=== PATIENT | male | born 1930 | race Caucasian/White ===

== ENCOUNTER → 2017-05-07 | Outpatient (CLI) | payer MEDICARE ==
[~2017-05-07] MED LIST: ALBU6.7H INH; ASCO500C PO; ASPI81 PO; B COTAB3 PO; ECASA81 PO; FEXO15TA PO; FISH1000 PO; FISHCAP4 PO; LUTE20CA PO; METO100T9 PO; METO25TA3 PO; MULT-244 PO; NEXI20CA PO; ROSU10 PO; SPECTRAVITE PO; SYMB160A INH; TAB-TAB PO; VITA500T10 PO; VITACAP7 PO; XOPEAER4 INH
[2017-05-07 14:05] LABS: HEMATOCRIT 37.2 % (39.0-51.0); HEMOGLOBIN 12.6 GM/DL (13.0-17.0); MEAN CORPUSCULAR HEMOGLOBIN 31.2 PG (27.0-34.0); MEAN CORPUSCULAR HGB CONC 33.9 % (32.0-36.0); MEAN PLATELET VOLUME 8.2 FL (7.0-11.0); PLATELET COUNT 195 TH/MM3 (150-450); RED BLOOD COUNT 4.05 MIL/MM3 (4.50-5.90); WHITE BLOOD COUNT 8.7 TH/MM3 (4.0-11.0)
[2017-05-07 14:16] LABS: PROTHROMBIN TIME - PATIENT 10.4 SEC (9.8-11.6)
[2017-05-07 14:29] LABS: BICARBONATE 27.8 MEQ/L (21.0-32.0); CALCIUM 8.8 MG/DL (8.5-10.1); CREATININE 1.33 MG/DL (0.60-1.30)
--- NOTE | 2017-05-07 21:06 | EKG ---
Date Performed: 05/07/2017 Time Performed: 10:53:52 PTAGE: 87 years EKG: Sinus rhythm with 1st degree A-V block Right bundle branch block Abnormal ECG PREVIOUS TRACING : 02/20/2009 10.13 Compared to the previous tracing RBBB is new DOCTOR: Jameel Monge Interpretating Date/Time 05/07/2017 21:06:01
== END ==
LOC: CPRE 10:25
PROVIDERS: ATTEND Internal Medicine
DX: Z01.812 Encounter for preprocedural laboratory examination (principal); Z01.810 Encounter for preprocedural cardiovascular examination; R91.8 Other nonspecific abnormal finding of lung field; I44.0 Atrioventricular block, first degree; I45.10 Unspecified right bundle-branch block
CPT/HCPCS: 36415; 80048; 85027; 85610; 85730; 93005

== ENCOUNTER 2017-05-11 10:39 | Day surgery (SDC) | payer MEDICARE ==
[~2017-05-11] VITALS: Ht 180.3 cm; Wt 88.2 kg
[~2017-05-11 10:39] MED LIST changes: -ALBU6.7H INH; -ASPI81 PO; -B COTAB3 PO; -FISH1000 PO; -METO100T9 PO; -NEXI20CA PO; -SPECTRAVITE PO; -TAB-TAB PO; -VITA500T10 PO
[2017-05-11 10:59] VITALS: BP 133/69; PULSE 58; RESP 20; TEMP 97.9; O2SAT 96
[2017-05-11] MEDS ORDERED: RESP: ALBUTEROL 2.5 MG/3 ML NEB (SCH) INH (12:00)
[2017-05-11] MEDS ORDERED: ONDANSETRON HCL 4 MG/2 ML VIAL IV ONE (12:00)
[2017-05-11] MEDS ORDERED: LIDOCAINE HCL 1% PF 5 ML SYRINGE OTHER ONE (12:00)
[2017-05-11] MEDS ORDERED: PROPOFOL 200 MG/20 ML AMP IV ONE (12:00)
[2017-05-11] MEDS ORDERED: RESP: LIDOCAINE HCL 4% TOPICAL 4 ML KIT NEB NEB SCH (12:00)
--- NOTE | 2017-05-11 13:11 | RADRPT ---
EXAM DATE/TIME: 05/11/2017 12:21 [facility] COMPARISON: No previous studies available for comparison. INDICATIONS : Pre op for navigational bronchoscopy. Lung mass. RADIATION DOSE: 5.85 CTDIvol (mGy) MEDICAL HISTORY : Carcinoma, bladder. Carcinoma, lung. SURGICAL HISTORY : Appendectomy. Lobectomy. ENCOUNTER: Initial ACUITY: 1 day PAIN SCALE: 0/10 LOCATION: chest TECHNIQUE: Volumetric scanning of the chest was performed using inspiration and expiration protocols. The study is performed using fiduciary markers for virtual bronchoscopy. Using automated exposure control and adjustment of the mA and/or kV according to patient size, radiation dose was kept as low as reasonabl y achievable to obtain optimal diagnostic quality images. DICOM format image data is available elec tronically for review and comparison. Follow-up recommendations for detected pulmonary nodules are based at a minimum on nodule size and pa tient risk factors according to Fleischner Society Guidelines. FINDINGS: LUNGS: There is no pneumothorax. There is an ill-defined large mass like structure in the right upper lobe w hich contains central calcification or possible contrast. This measures up to at least 4 cm in diamet er. There is peripheral consolidation surrounding this mass like area. There is narrowing of the righ t upper lobe bronchus there is a second smaller mass in the anterior right upper lobe measuring up to 1.5 cm. This is best seen on axial image #21. There is mild volume loss in the right hemithorax comp ared to the left. The left lung is clear. PLEURAE: There is no pleural effusion. A full referral pleural thickening in the right upper lung. MEDIASTINUM: The heart and great vessels demonstrate no acute abnormality. There are Postoperative changes in the right hilar region with multiple surgical clips and kendall. There is abnormal soft tissue density ex tending into the right suprahilar region. Coronary artery calcifications are present. This calcificat ion mitral valve. AXILLAE: Within normal limits. No lymphadenopathy. MUSCULOSKELETAL: Within normal limits for patient age. MISCELLANEOUS: The visualized upper abdominal organs demonstrate no acute abnormality. CONCLUSION: 1. Large ill-defined masslike area of opacity in the right upper lobe is consistent with tumor mass. A central calcification or possible contrast. There is more peripheral consolidation in the right upp er lobe. 2. There is a second smaller mass in the anterior right upper lobe measuring up to 1.5 cm. 3. Postoperative changes in the right hilar region with surgical clips. There is abnormal soft tissue density extending into the right suprahilar region consistent with tumor and/or adenopathy. Asaf Jesus MD on May 11, 2017 at 13:00 Board Certified Radiologist. This report was verified electronically.
[2017-05-11] MEDS ORDERED: RESP: ALBUTEROL 2.5 MG/IPRATROPIUM 0.5 MG NEB (PRN) NEB (14:15)
[2017-05-11] MEDS ORDERED: DO NOT ADM ANY ANTICOAGULANT DRUGS PRN ×2 (14:24→14:30)
[2017-05-11] MEDS ORDERED: *RESP: ALBUTEROL 2.5 MG/3 ML NEB (PRN) PERIprocedural Use ONLY NEB ONE (14:33)
[2017-05-11] MEDS ORDERED: SODIUM CHLOR 0.9% 1000 ML INJ 1,000 ML IV SCH (14:45)
--- NOTE | 2017-05-11 15:07 | RADRPT ---
EXAM DATE/TIME: 05/11/2017 14:21 [facility] COMPARISON: CT THORAX W/O CONTRAST INSP/EXPIR, NAVIGATION, May 11, 2017, 12:21. CHEST SINGLE AP, February 19, 2009, 23:25. INDICATIONS : Post Bronchoscopy MEDICAL HISTORY : Carcinoma, bladder. Carcinoma, lung. SURGICAL HISTORY : Lobectomy. Appendectomy. ENCOUNTER: Initial ACUITY: 1 day PAIN SCORE: 0/10 LOCATION: Bilateral chest FINDINGS: There is pleuroparenchymal opacity in the right lung apex and patchy infiltrate in the right lower katja ng. There is asymmetric elevation of the right diaphragm and dependent right effusion also suspected. Mild perihilar and basilar parenchymal testes present on the left side. Visualized cardiac contours are grossly stable. There is no evidence of pneumothorax or other complication of bronchoscopy CONCLUSION: No evidence of complication of bronchoscopy. Charanjit Jackson MD on May 11, 2017 at 15:02 Board Certified Radiologist. This report was verified electronically.
[2017-05-11 15:20] VITALS: BP 135/71; PULSE 89; RESP 18; TEMP 97.5; O2SAT 94
[2017-05-11 15:50] VITALS: BP 125/69; PULSE 63; RESP 20; O2SAT 94
[2017-05-11 16:25] VITALS: BP 136/66; PULSE 76; RESP 20; O2SAT 92
--- NOTE | 2017-05-11 17:36 | MP ---
cc: Camilla NAM DATE OF SURGERY: 05/11/2017 PROCEDURE: Bronchoscopy INDICATIONS: Probable lung cancer. DESCRIPTION OF PROCEDURE: After informed consent was obtained Mr. Jc underwent diagnostic bronchoscopy with general anesthesia and Veran navigational assistance. Examination of the mid to distal trachea was normal. Examination of the left main stem bronchus, left upper lobe and lingula as well as the left lower lobe was entirely unremarkable. Examination of the right main stem bronchus down to the takeoff of the residual right lung was normal but there was narrowing at the distal airway. Resection margin was noted, that appeared normal. The bronchus to the remaining right lung was markedly narrowed with mucosal irregularity. No specific endobronchial mass was noted. Using Veran navigational technology, we then were able to identify the area of interest and brushings were initially obtained. There was fairly brisk bleeding after the initial brushing, but that abated with cold saline installation. We then relocated the area of interest using navigation, took additional washings, several brushings, and then a needle aspiration as well. The patient tolerated the procedure well without other apparent complication. There was no active bleeding at the end of the procedure. He is being transferred to recovery. Chest x-ray has been ordered. Multiple specimens submitted for cytology and routine culture. MD MAHENDRA Sanders/AICHA /1:59 PM /4:48 PM
== END 2017-05-11 16:35 | disposition home or self-care (01) ==
LOC: HROP 10:39 → HRIP 10:44 → HROP 16:35
PROVIDERS: ATTEND Internal Medicine
DX: C34.11 Malignant neoplasm of upper lobe, right bronchus or lung (principal); C67.9 Malignant neoplasm of bladder, unspecified; E78.5 Hyperlipidemia, unspecified; J44.9 Chronic obstructive pulmonary disease, unspecified
CPT/HCPCS: 00520; 31623; 31627; 71045; 71250; 87015; 87070; 87077; 87102; 87116; 87205; 87206; 88112; 88173; 88305; 94640; 94664; J2405; J3010; J7030; J7613

== ENCOUNTER 2017-08-30 12:49 | Emergency (ER) | payer MEDICARE ==
[~2017-08-30] VITALS: Ht 182.9 cm; Wt 88.2 kg
[2017-08-30 12:54] VITALS: BP 124/58; PULSE 63; RESP 20; TEMP 98.1; O2SAT 96
[2017-08-30 14:06] LABS: AUTOMATED NEUTROPHIL # 5.4 TH/MM3 (1.8-7.7); BASOPHIL # 0.1 TH/MM3 (0-0.2); BASOPHIL % 0.8 % (0.0-2.0); EOSINOPHIL # 0.4 TH/MM3 (0-0.4); EOSINOPHIL % 5.1 % (0.0-4.0); HEMATOCRIT 39.2 % (39.0-51.0); HEMOGLOBIN 13.2 GM/DL (13.0-17.0); LYMPH % 15.7 % (9.0-44.0); LYMPHOCYTE # 1.2 TH/MM3 (1.0-4.8); MEAN CELL VOLUME 88.9 FL (80.0-100.0); MEAN CORPUSCULAR HGB CONC 33.7 % (32.0-36.0); MEAN PLATELET VOLUME 7.8 FL (7.0-11.0); MONO % 7.6 % (0.0-8.0); MONOCYTE # 0.6 TH/MM3 (0-0.9); NEUT % 70.8 % (16.0-70.0); PLATELET COUNT 243 TH/MM3 (150-450); RED BLOOD COUNT 4.41 MIL/MM3 (4.50-5.90); RED CELL DISTRIBUTION WIDTH 13.9 % (11.6-17.2); WHITE BLOOD COUNT 7.6 TH/MM3 (4.0-11.0)
[2017-08-30 14:14] LABS: INTERNATIONAL NORMALIZED RATIO 1.1 RATIO
--- NOTE | 2017-08-30 14:21 | RADRPT ---
EXAM DATE/TIME: 08/30/2017 13:10 [facility] COMPARISON: CT THORAX W/O CONTRAST INSP/EXPIR, NAVIGATION, May 11, 2017, 12:21. CHEST SINGLE AP, May 11, 2017, 14:21. INDICATIONS : Shortness of breath. MEDICAL HISTORY : Carcinoma, bladder. Carcinoma, lung. SURGICAL HISTORY : Appendectomy. Lobectomy. ENCOUNTER: Initial ACUITY: 3 days PAIN SCORE: 8/10 LOCATION: Bilateral chest FINDINGS: Right apical mass stable from prior. Stable elevation of the right hemidiaphragm. Patchy areas of i nterstitial opacity left mid and lower lung stable from prior. The heart is normal in size. Mild cu rvature of the upper thoracic spine convex to the right. CONCLUSION: No acute findings. Persistent right apical mass and interstitial prominence left lower lung. Oc Gee MD on August 30, 2017 at 14:17 Board Certified Radiologist. This report was verified electronically.
[2017-08-30 14:26] LABS: ALBUMIN 3.4 GM/DL (3.4-5.0); ALT (GPT) 24 U/L (12-78); AST (GOT) 19 U/L (15-37); BICARBONATE 27.6 MEQ/L (21.0-32.0); BLOOD UREA NITROGEN 27 MG/DL (7-18); CALCIUM 8.8 MG/DL (8.5-10.1); CHLORIDE 108 MEQ/L (98-107); CREATININE 1.54 MG/DL (0.60-1.30); GLOMERULAR FILTRATION RATE 43 ML/MIN (>89); GLUCOSE,RANDOM 102 MG/DL (74-106); MAGNESIUM 2.1 MG/DL (1.5-2.5); SODIUM (NA) 141 MEQ/L (136-145)
[2017-08-30 14:31] LABS: ALKALINE PHOSPHATASE 398 U/L (45-117); TOTAL BILIRUBIN ADULT 0.5 MG/DL (0.2-1.0); TROPONIN I LESS THAN 0.02 NG/ML (0.02-0.05)
--- NOTE | 2017-08-30 14:31 | PD ---
HPI Chief Complaint: Chest Pain Time Seen by Provider: 14:12 Travel History International Travel<30 days: No Contact w/Intl Traveler<30days: No Traveled to known affect area: No History of Present Illness HPI Patient comes to the emergency department complaining of right upper quadrant abdominal pain that radiates into his chest ongoing for 8 or 9 months intermittently that got progressively worse for the past 2 weeks. Patient reports anytime he eats cheese, fatty foods, or dessert makes pain worse as well as with laying down flat seems to make his pain worse. Patient denies anything improving the symptoms. Patient reports pain will sometimes radiate to his back as well. Patient reports that his pain has been a steady achiness over the past 2 weeks. Denies any shortness of breath, fevers, loss or change in bowel or bladder, headache, or loss or change in bowel or bladder. Patient reports he still has his gallbladder. Severity mild. PFSH Past Medical History Arthritis: Yes Blood Disorders: No Cancer: Yes ( BLADDER/LUNG) Cardiovascular Problems: Yes High Cholesterol: Yes Diabetes: No Endocrine: No Gastrointestinal Disorders: Yes GERD: Yes Glaucoma: No Genitourinary: Yes (BLADDER CANCER) Hepatitis: No Hiatal Hernia: No Hypertension: No Immune Disorder: No Kidney Stones: Yes Musculoskeletal: Yes Neurologic: No Psychiatric: No Respiratory: Yes (LUNG CA) Thyroid Disease: No Past Surgical History Abdominal Surgery: Yes (APPENDECTOMY) AICD: No Appendectomy: Yes Cardiac Surgery: No Ear Surgery: No Endocrine Surgery: No Eye Surgery: No Genitourinary Surgery: Yes (BLADDER TUMOR) Gynecologic Surgery: No Joint Replacement: No Oral Surgery: No Pacemaker: No Thoracic Surgery: Yes ( LOBECTOMY IN 01/09 RUL AND RML) Other Surgery: Yes Social History Alcohol Use: Yes (SOCIALLY) Tobacco Use: No (PT SMOKED 2PPD FOR 60-70YRS, QUIT IN 1997) Substance Use: No Allergies-Medications (Allergen,Severity, Reaction): Coded Allergies: diatrizoate meglumine (Verified Allergy, Severe, PASSED OUT, 05/07/17) gadobenic acid (Verified Allergy, Severe, PASSED OUT, 05/07/17) gadodiamide (Verified Allergy, Severe, PASSED OUT, 05/07/17) gadoteridol (Verified Allergy, Severe, PASSED OUT, 05/07/17) iodixanol (Verified Allergy, Severe, PASSED OUT, 05/07/17) iohexol (Verified Allergy, Severe, PASSED OUT, 05/07/17) iodine (Verified Allergy, Mild, 05/07/17) potassium iodide (Verified Allergy, Mild, 05/07/17) povidone-iodine (Verified Allergy, Mild, 05/07/17) sodium iodide (Verified Allergy, Mild, 05/07/17) sodium iodide (Verified Allergy, Mild, 05/07/17) atorvastatin (Unverified Adverse Reaction, Intermediate, SEVERE WEAKNESS, PAIN, 12/15/16) Reported Meds & Prescriptions Reported Meds & Active Scripts Active Tramadol (Tramadol HCl) 50 Mg Tab 50 Mg PO Q8H PRN Reported Vitamin C (Ascorbic Acid) 500 Mg Capsule 500 Cap PO DAILY B Complex (B-Complex Vitamins) 1 Cap 1 Cap PO DAILY Fish Oil + D3 (Fish Oil-Cholecalciferol) 1,200-1,000 Mg-Unit Cap 1 Cap PO DAILY Lutein 20 Mg Cap 20 Mg PO DAILY Spectravite Senior (Multivit with Iron-Minerals) 1 Each Tablet 2 Tab PO DAILY Maria Del Carmen Allergy (Fexofenadine HCl) 180 Mg Tab 180 Mg PO DAILY Aspirin DR (Aspirin) 81 Mg Tabdr 81 Mg PO DAILY Xopenex Hfa 15 GM Inh (Levalbuterol 15 GM Inh) 45 Mcg/Act Aer 90 Mcg INH DAILY Shake well before using. (1 puff = 45 mcg) Metoprolol Tartrate 25 Mg Tab 12.5 Mg PO HS Crestor (Rosuvastatin Calcium) 10 Mg Tab 10 Mg PO DAILY Symbicort Inh (Budesonide/Formoterol Fumarate) 160-4.5 Mcg/Act Aero 1 Puff INH Q12HR Review of Systems Except as stated in HPI: all other systems reviewed are Neg Physical Exam Narrative GENERAL: Well-developed, overly nourished, in no acute distress, and non-ill appearing. SKIN: Focused skin assessment warm and dry. HEAD: Atraumatic. Normocephalic. EYES: Pupils equal and round. EOMI. No scleral icterus. No injection or drainage. ENT: No nasal bleeding or discharge. Mucous membranes pink and moist. NECK: Trachea midline. Supple. No nuclear rigidity. CARDIOVASCULAR: Regular rate and rhythm. No murmur appreciated. RESPIRATORY: No accessory muscle use. No respiratory distress. Clear to auscultation. Breath sounds equal bilaterally. GASTROINTESTINAL: Abdomen soft, nondistended, and no guarding. Hepatic and splenic margins not palpable. Normal bowel sounds x4. No pulsatile mass. Patient reports tenderness palpation right upper quadrant. Positive Melgar sign. MUSCULOSKELETAL: No obvious deformities. No clubbing. No cyanosis. No edema. Full range of motion. NEUROLOGICAL: Awake and alert. No obvious cranial nerve deficits. Motor grossly within normal limits. Normal speech. PSYCHIATRIC: Appropriate mood and affect; insight and judgment normal. Data Data Last Documented VS Vital Signs Date Time Temp Pulse Resp B/P (MAP) Pulse Ox O2 Delivery O2 Flow Rate FiO2 08/30/17 14:35 Room Air 08/30/17 12:54 98.1 63 20 124/58 (80) 96 Orders Orders Electrocardiogram (08/30/17 12:56) Ckmb (Isoenzyme) Profile (08/30/17 12:56) Complete Blood Count With Diff (08/30/17 12:56) Comprehensive Metabolic Panel (08/30/17 12:56) Magnesium (Mg) (08/30/17 12:56) Prothrombin Time / Inr (Pt) (08/30/17 12:56) Act Partial Throm Time (Ptt) (08/30/17 12:56) Troponin I (08/30/17 12:56) Lipase (08/30/17 12:56) Chest, Pa & Lat (08/30/17 12:56) Us Abdomen Gallbladder (08/30/17 14:29) Sodium Polysty Sulfate Liq (Kayexalate L (08/30/17 14:45) Iv Access Insert/Monitor (08/30/17 14:41) Ecg Monitoring (08/30/17 14:41) Oximetry (08/30/17 14:41) Sodium Chloride 0.9% Flush (Ns Flush) (08/30/17 14:45) Ed Discharge Order (08/30/17 16:18) Labs Laboratory Tests Test 08/30/17 13:35 White Blood Count 7.6 TH/MM3 Red Blood Count 4.41 MIL/MM3 Hemoglobin 13.2 GM/DL Hematocrit 39.2 % Mean Corpuscular Volume 88.9 FL Mean Corpuscular Hemoglobin 30.0 PG Mean Corpuscular Hemoglobin Concent 33.7 % Red Cell Distribution Width 13.9 % Platelet Count 243 TH/MM3 Mean Platelet Volume 7.8 FL Neutrophils (%) (Auto) 70.8 % Lymphocytes (%) (Auto) 15.7 % Monocytes (%) (Auto) 7.6 % Eosinophils (%) (Auto) 5.1 % Basophils (%) (Auto) 0.8 % Neutrophils # (Auto) 5.4 TH/MM3 Lymphocytes # (Auto) 1.2 TH/MM3 Monocytes # (Auto) 0.6 TH/MM3 Eosinophils # (Auto) 0.4 TH/MM3 Basophils # (Auto) 0.1 TH/MM3 CBC Comment DIFF FINAL Differential Comment Prothrombin Time 11.0 SEC Prothromb Time International Ratio 1.1 RATIO Activated Partial Thromboplast Time 25.6 SEC Blood Urea Nitrogen 27 MG/DL Creatinine 1.54 MG/DL Random Glucose 102 MG/DL Total Protein 7.0 GM/DL Albumin 3.4 GM/DL Calcium Level 8.8 MG/DL Magnesium Level 2.1 MG/DL Alkaline Phosphatase 398 U/L Aspartate Amino Transf (AST/SGOT) 19 U/L Alanine Aminotransferase (ALT/SGPT) 24 U/L Total Bilirubin 0.5 MG/DL Sodium Level 141 MEQ/L Potassium Level 5.4 MEQ/L Chloride Level 108 MEQ/L Carbon Dioxide Level 27.6 MEQ/L Anion Gap 5 MEQ/L Estimat Glomerular Filtration Rate 43 ML/MIN Total Creatine Kinase 59 U/L Troponin I LESS THAN 0.02 NG/ML Lipase 94 U/L MDM Medical Decision Making Medical Screen Exam Complete: Yes Emergency Medical Condition: Yes Interpretation(s) EKG reviewed by Dr. Almazan shows sinus bradycardia with ventricular rate of 58. No STEMI. Right bundle branch block. Last Impressions Gall Bladder Ultrasound 08/30/17 1429 Signed Impressions: Service Date/Time: Wednesday, August 30, 2017 14:45 - CONCLUSION: 1. Moderate gallbladder distention without cholelithiasis or sonographic evidence for acute cholecystitis. Please note that gallbladder distention can be a hyperacute cholecystitis finding. 2. 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 Rashad Bond MD Chest X-Ray 08/30/17 1256 Signed Impressions: Service Date/Time: Wednesday, August 30, 2017 13:10 - CONCLUSION: No acute findings. Persistent right apical mass and interstitial prominence left lower lung. Oc Gee MD Differential Diagnosis Cholecystitis, cholelithiasis, metabolic disturbance, gastritis, pneumonia, pancreatitis Narrative Course The patient presented with upper epigastric/RUQ abdominal pain. There was no significant history of diarrhea and no fever. The patient appeared comfortable, well hydrated and the abdominal exam was fairly unremarkable and minimal to nontender to me. Laboratory evaluation revealed no significant abnormality and sonography revealed dilated gallbladder but no evidence otherwise for cholecystitis or obstruction. Appears biliary colic possible gastritis. There was no evidence of an acute, surgical abdomen at this time. There was no clinical evidence to support cholecystitis, pancreatitis, perforation of gastric ulcer, colitis, diverticulitis, bacterial peritonitis, obstruction, volvulus, early appendicitis, or hernial incarceration or strangulation at this time. There was no evidence to support vascular pathology such as AAA, mesenteric ischemia, nor significant GIB. There was also no clinical evidence by history, exam or risk factors to suggest atypical presentation of cardiac disease such as ACS, AMI or atypical angina. No evidence to suggest genitourinary etiology as well. During the course of the ED visit, the patient noted improvement. Clinical picture was discussed with the patient, as well as plan of care. The patient was instructed to follow up with referred surgeon. Abdominal pain warnings were discussed with the patient. The patient is to return if worsens, pain worsens or changes, develop fever, inability to tolerate fluids with or without vomiting, unable to establish follow up or as needed. The patient agrees with plan. Patient in no obvious distress upon re-evaluation. All pertinent laboratory/ Radiology result(s) discussed with patient/family. Patient reports renal cysts have been there for years. Discussed patient with Dr. Almazan prior discharge , who is in agreement plan of care and disposition. Patient was asked if they wanted to speak to my attending, which the patient did not wish to do at this time. Any questions/concerns in reference to patient diagnosis/condition discussed and clarified prior to patient's discharge. Reinforced sheer importance of close follow up with patient's primary physician or primary care clinic. Instructed patient to return to ED immediately, if symptoms return/ worsen. Patient showed understanding of above instructions. Further instructions and recommendations were detailed in discharge paperwork. Patient ambulated without difficulty out of ED at discharge. Diagnosis Primary Impression: Biliary colic Additional Impression: Hyperkalemia Referrals: Mehrdad West MD Patient Instructions: Biliary Colic (ED), General Instructions, Hyperkalemia ( ED) Additional Instructions: Follow-up with your primary care physician this week for reevaluation of your hyperkalemia. Follow-up with general surgery this week for reevaluation of your biliary colic. Avoid fatty and greasy foods. Take all medication as prescribed. Return to the emergency department if symptoms get worse. Med/Other Pt SpecificInfo: Prescription(s) given Scripts Tramadol (Tramadol) 50 Mg Tab 50 MG PO Q8H Y for PAIN, #9 TAB 0 Refills Prov: Danny Almazan MD 08/30/17 Disposition: 01 DISCHARGE HOME Condition: Stable Brannon Caruso Aug 30, 2017 14:31
[2017-08-30] MEDS ORDERED: SODIUM POLYSTYRENE SULFONATE SUSP 15 GM/60 ML CUP PO ONE (14:45)
[2017-08-30] MEDS ORDERED: SODIUM CHLORIDE 0.9% FLUSH 10 ML FLUSH IV FLUSH PRN (14:45)
--- NOTE | 2017-08-30 16:06 | RADRPT ---
EXAM DATE/TIME: 08/30/2017 14:45 [facility] COMPARISON: CT THORAX W/O CONTRAST INSP/EXPIR, NAVIGATION, May 11, 2017, 12:21. INDICATIONS : Right upper quadrant abdominal pain. MEDICAL HISTORY : Gastroesophageal reflux disease. Hypercholesterolemia. Lung cancer. Bladder cancer. Kidney stone le ft. Bladder tumor. SURGICAL HISTORY : Appendectomy. Right lobectomy. Right hand surgery. ENCOUNTER: Initial ACUITY: 2 weeks PAIN SCORE: 4/10 LOCATION: Right upper quadrant MEASUREMENTS: LIVER: 14.7 cm length COMMON DUCT: 3 mm RIGHT KIDNEY: 10.8 x 5.8 x 5.5 cm FINDINGS: LIVER: Left lobe the liver is obscured. Liver otherwise appears unremarkable. COMMON DUCT: No intraluminal mass or stone visualized. GALLBLADDER: Gallbladder is moderately distended but otherwise unremarkable. No significant gall bladder wall thic kening, pericholecystic fluid or sonographic Melgar sign. PANCREAS: The visualized portions are within normal limits. 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 Comparison w ith prior CT examination demonstrates multiple parapelvic cysts in the right kidney. Overall sonograp hic appearance is consistent with parapelvic cysts. CONCLUSION: 1. Moderate gallbladder distention without cholelithiasis or sonographic evidence for acute cholecyst itis. Please note that gallbladder distention can be a hyperacute cholecystitis finding. 2. 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 Rashad Bond MD on August 30, 2017 at 15:50 Board Certified Radiologist. This report was verified electronically.
[2017-08-30] MEDS ORDERED: TRAM50TA PO (16:16)
--- NOTE | 2017-08-30 17:41 | EKG ---
Date Performed: 08/30/2017 Time Performed: 13:44:42 PTAGE: 87 years EKG: SINUS BRADYCARDIA RIGHT BUNDLE BRANCH BLOCK ABNORMAL ECG Compared to prior electrocardiogra m, probably No significant change from prior electrocardiogram. PREVIOUS TRACING : 05/07/2017 10.53 DOCTOR: Abelino Rosa Interpretating Date/Time 08/30/2017 17:40:02
[2017-09-06] MEDS ORDERED: PERC5TAB12 PO (13:49)
== END 2017-08-30 16:51 | disposition home or self-care (01) ==
LOC: NEPC 12:49
DX: K80.50 Calculus of bile duct without cholangitis or cholecystitis without obstruction (principal); E87.5 Hyperkalemia; E78.00 Pure hypercholesterolemia, unspecified
CPT/HCPCS: 71046; 76705; 80053; 82550; 83690; 83735; 84484; 85025; 85610; 85730; 93005

== ENCOUNTER 2017-09-06 12:17 | Observation (INO) | payer MEDICARE ==
[~2017-09-06 12:17] MED LIST changes: -ASCO500C PO; +DEXAMETHASONE SOD PHOS 4 MG/ML VIAL IV; -ECASA81 PO; -FEXO15TA PO; -FISHCAP4 PO; +LABETALOL HCL 100 MG/20 ML VIAL IV; +LACTATED RINGER'S 1000 ML INJ 1,000 ML IV; +LIDOCAINE HCL 1% PF 5 ML SYRINGE OTHER; -LUTE20CA PO; -METO25TA3 PO; -MULT-244 PO; +ONDANSETRON HCL 4 MG/2 ML VIAL IV; +PHENYLEPH/NS 1000 MCG/10 ML SYR IV; +PROPOFOL 200 MG/20 ML AMP IV; +ROCURONIUM INJ 50 MG/5 ML SYRINGE IV PUSH; -ROSU10 PO; -SYMB160A INH; -VITACAP7 PO; -XOPEAER4 INH; +ePHEDrine/NS 25 MG/5 ML SYRINGE IV
[2017-09-06] MEDS ORDERED: SODIUM CHLORID 0.9% 500 ML IV (12:45)
[2017-09-06] MEDS ORDERED: INSULIN HUMAN REGULAR 1,000 UNITS/10 ML VIAL SQ (12:45)
[2017-09-06] MEDS ORDERED: METOPROLOL TARTRATE 25 MG TAB PO (12:45)
[2017-09-06] MEDS: LACTATED RINGER'S 1000 ML IV (13:54)
[2017-09-06] MEDS: METRONIDAZOLE 500 MG/100 ML ISONTONIC SOLN IV (15:05)
[2017-09-06] MEDS: ceFAZolin 2 GM/DEX PREMIX 50 ML IV (15:13)
[2017-09-06] MEDS ORDERED: ACETAMINOPHEN 1000 MG/100 ML 100 ML IV (15:42)
[2017-09-06] MEDS ORDERED: MIDAZOLAM HCL 2 MG/2 ML VIAL (15:42)
[2017-09-06] MEDS ORDERED: SUGAMMADEX SODIUM 200 MG/2 ML VIAL IV PUSH (15:43)
[2017-09-06] MEDS ORDERED: diphenhydrAMINE HCL 25 MG CAP PO (16:15)
[2017-09-06] MEDS ORDERED: [UNRECOGNIZED DRUG - REMARK] XX (16:15)
[2017-09-06] MEDS ORDERED: MORPHINE SULFATE 4 MG/ML INJ IV PUSH (16:15)
[2017-09-06] MEDS ORDERED: ACETAMINOPHEN/HYDROcodone 325 MG/5 MG TAB PO (16:15)
[2017-09-06] MEDS ORDERED: NALOXONE HCL 0.4 MG/ML AMP IV PUSH (16:15)
[2017-09-06] MEDS ORDERED: Post-op Orders (for Pharmacy) XX (16:15)
[2017-09-06] MEDS ORDERED: ONDANSETRON HCL 4 MG/2 ML VIAL IV PUSH (16:15)
[2017-09-06] MEDS ORDERED: DO NOT ADM ANY ANTICOAGULANT DRUGS (16:25)
[2017-09-06] MEDS: LACTATED RINGER'S 1000 ML INJ 1,000 ML IV (16:57)
[2017-09-06] MEDS: *morphine SULFATE 4 MG/ML PERIprocedure ONLY (16:58)
[2017-09-06] MEDS: METOPROLOL TARTRATE 25 MG TAB PO (21:27)
[2017-09-06] MEDS: ACETAMINOPHEN/HYDROcodone 325 MG/5 MG TAB PO (21:27)
[2017-09-06] MEDS: BUDESONIDE-FORMOTEROL 160/4.5 MCG INHALER INH (21:29)
[2017-09-07] MEDS: LACTATED RINGER'S 1000 ML INJ 1,000 ML IV ×2 (00:59→07:53)
[2017-09-07] MEDS: BUDESONIDE-FORMOTEROL 160/4.5 MCG INHALER INH (07:48)
[2017-09-07] MEDS: MULTIVITAMIN TAB PO (07:49)
[2017-09-07] MEDS: ASPIRIN EC 81 MG TABEC PO (07:49)
[2017-09-07] MEDS: LORATADINE 10 MG TAB PO (07:50)
[2017-09-07] MEDS: VITAMIN B CMPLX/VITC/FOLIC AC CAP PO (07:50)
[2017-09-07] MEDS: ATORVASTATIN 20 MG TAB PO (07:50)
[2017-09-07] MEDS: ALBUTEROL SULFATE 90 MCG/ACT HFA 18 GM INHALER INH (07:50)
[2017-09-07] MEDS: ASCORBIC ACID 500 MG TAB PO (07:50)
[2017-09-07] MEDS ORDERED: NON-FORMULARY DRUG (Lutein 20 MG) PO (09:00)
[2017-09-07] MEDS ORDERED: NON-FORMULARY DRUG (Fish Oil-Cholecalciferol (Fish Oil + D3) 1 CAP) PO (09:00)
== END 2017-09-07 10:28 | disposition home or self-care (01) ==
LOC: HSDC 12:17 → HSDI 16:18 → N07A 17:11
DX: K81.1 Chronic cholecystitis (principal); K82.8 Other specified diseases of gallbladder; K66.0 Peritoneal adhesions (postprocedural) (postinfection); C34.11 Malignant neoplasm of upper lobe, right bronchus or lung; E78.00 Pure hypercholesterolemia, unspecified; E78.5 Hyperlipidemia, unspecified; J44.9 Chronic obstructive pulmonary disease, unspecified; Z87.891 Personal history of nicotine dependence
CPT/HCPCS: 00790; 88304

== ENCOUNTER 2017-10-18 14:27 | Emergency (ER) | payer MEDICARE ==
[~2017-10-18] VITALS: Ht 182.9 cm; Wt 80.0 kg
[~2017-10-18 14:27] MED LIST changes: +ASCO500C PO; -DEXAMETHASONE SOD PHOS 4 MG/ML VIAL IV; +ECASA81 PO; +FEXO15TA PO; +FISHCAP4 PO; -LABETALOL HCL 100 MG/20 ML VIAL IV; -LACTATED RINGER'S 1000 ML INJ 1,000 ML IV; -LIDOCAINE HCL 1% PF 5 ML SYRINGE OTHER; +LUTE20CA PO; +METO25TA3 PO; +MULT-244 PO; -ONDANSETRON HCL 4 MG/2 ML VIAL IV; +PERC5TAB12 PO; -PHENYLEPH/NS 1000 MCG/10 ML SYR IV; -PROPOFOL 200 MG/20 ML AMP IV; -ROCURONIUM INJ 50 MG/5 ML SYRINGE IV PUSH; +ROSU10 PO; +SYMB160A INH; +VITACAP7 PO; +XOPEAER4 INH; -ePHEDrine/NS 25 MG/5 ML SYRINGE IV
[2017-10-18 14:45] VITALS: BP 109/54; PULSE 54; RESP 16; TEMP 97.6; O2SAT 96
[2017-10-18] MEDS ORDERED: METOCLOPRAMIDE HCL 10 MG/2 ML VIAL IV PUSH ONE (15:15)
[2017-10-18] MEDS ORDERED: MORPHINE SULFATE 4 MG/ML INJ IV PUSH ONE (15:15)
[2017-10-18 15:28] LABS: AUTOMATED NEUTROPHIL # 5.4 TH/MM3 (1.8-7.7); BASOPHIL # 0.1 TH/MM3 (0-0.2); BASOPHIL % 0.6 % (0.0-2.0); EOSINOPHIL # 0.4 TH/MM3 (0-0.4); EOSINOPHIL % 5.7 % (0.0-4.0); HEMATOCRIT 38.7 % (39.0-51.0); LYMPH % 16.6 % (9.0-44.0); LYMPHOCYTE # 1.3 TH/MM3 (1.0-4.8); MEAN CELL VOLUME 89.8 FL (80.0-100.0); MEAN CORPUSCULAR HEMOGLOBIN 30.2 PG (27.0-34.0); MEAN CORPUSCULAR HGB CONC 33.6 % (32.0-36.0); MEAN PLATELET VOLUME 7.4 FL (7.0-11.0); MONO % 8.8 % (0.0-8.0); MONOCYTE # 0.7 TH/MM3 (0-0.9); NEUT % 68.3 % (16.0-70.0); PLATELET COUNT 213 TH/MM3 (150-450); RED BLOOD COUNT 4.31 MIL/MM3 (4.50-5.90); RED CELL DISTRIBUTION WIDTH 14.1 % (11.6-17.2); WHITE BLOOD COUNT 7.9 TH/MM3 (4.0-11.0)
[2017-10-18] MEDS ORDERED: ASPIRIN 325 MG TAB PO ONE (15:30)
--- NOTE | 2017-10-18 15:44 | PD ---
Physical Exam Narrative I, Dr. Stokes, have reviewed the advance practice practitioner's documentation and am in agreement, met with the patient face to face, made the diagnosis, and the medical decision making was done by me. *My assessment and Findings: Please see mid-level provider note for full history and physical disposition. Patient presents complaining of 3-4-week history of chest pain. In his epigastric and radiating to the right side and down his right arm, describes the pain as heavy, alleviated with OxyContin but they will will recur a few hours later, no aggravating factors. Patient had gallbladder surgery a few weeks ago. He denies fever, chills, nausea, vomiting , edema, but reports shortness of breath which he states is secondary to his COPD. Patient also has lung cancer and had a right upper and mid lobes removed. Patient placed on a cardiac monitor technician, IV access obtained, and chest x- ray/EKG/labs ordered. Data Data Last Documented VS Vital Signs Date Time Temp Pulse Resp B/P (MAP) Pulse Ox O2 Delivery O2 Flow Rate FiO2 10/18/17 16:57 18 10/18/17 14:45 97.6 54 109/54 (72) 96 Orders Orders Electrocardiogram (10/18/17 14:57) Complete Blood Count With Diff (10/18/17 14:57) Ckmb (Isoenzyme) Profile (10/18/17 14:57) Troponin I (10/18/17 14:57) Iv Access Insert/Monitor (10/18/17 14:57) Ecg Monitoring (10/18/17 14:57) Oxygen Administration (10/18/17 14:57) Oximetry (10/18/17 14:57) Comprehensive Metabolic Panel (10/18/17 14:57) Act Partial Throm Time (Ptt) (10/18/17 14:57) Prothrombin Time / Inr (Pt) (10/18/17 14:57) Chest, Pa & Lat (10/18/17 ) Morphine Inj (Morphine Inj) (10/18/17 15:15) Metoclopramide Inj (Reglan Inj) (10/18/17 15:15) Aspirin (Aspirin) (10/18/17 15:30) Lipase (10/18/17 14:57) Magnesium (Mg) (10/18/17 14:57) D-Dimer (10/18/17 15:32) Ct Thorax/ Chest Wo Iv Contras (10/18/17 ) Ventilation & Perfusion Scan (10/18/17 ) Troponin I (10/18/17 19:49) Ed Discharge Order (10/18/17 21:14) Labs Laboratory Tests Test 10/18/17 15:15 10/18/17 20:03 White Blood Count 7.9 TH/MM3 Red Blood Count 4.31 MIL/MM3 Hemoglobin 13.0 GM/DL Hematocrit 38.7 % Mean Corpuscular Volume 89.8 FL Mean Corpuscular Hemoglobin 30.2 PG Mean Corpuscular Hemoglobin Concent 33.6 % Red Cell Distribution Width 14.1 % Platelet Count 213 TH/MM3 Mean Platelet Volume 7.4 FL Neutrophils (%) (Auto) 68.3 % Lymphocytes (%) (Auto) 16.6 % Monocytes (%) (Auto) 8.8 % Eosinophils (%) (Auto) 5.7 % Basophils (%) (Auto) 0.6 % Neutrophils # (Auto) 5.4 TH/MM3 Lymphocytes # (Auto) 1.3 TH/MM3 Monocytes # (Auto) 0.7 TH/MM3 Eosinophils # (Auto) 0.4 TH/MM3 Basophils # (Auto) 0.1 TH/MM3 CBC Comment DIFF FINAL Differential Comment Prothrombin Time 10.8 SEC Prothromb Time International Ratio 1.1 RATIO Activated Partial Thromboplast Time 24.9 SEC D-Dimer Quantitative (PE/DVT) 0.65 MG/L FEU Blood Urea Nitrogen 26 MG/DL Creatinine 1.33 MG/DL Random Glucose 90 MG/DL Total Protein 7.2 GM/DL Albumin 3.5 GM/DL Calcium Level 8.7 MG/DL Magnesium Level 2.0 MG/DL Alkaline Phosphatase 442 U/L Aspartate Amino Transf (AST/SGOT) 16 U/L Alanine Aminotransferase (ALT/SGPT) 17 U/L Total Bilirubin 0.5 MG/DL Sodium Level 138 MEQ/L Potassium Level 4.5 MEQ/L Chloride Level 103 MEQ/L Carbon Dioxide Level 27.6 MEQ/L Anion Gap 7 MEQ/L Estimat Glomerular Filtration Rate 51 ML/MIN Total Creatine Kinase 50 U/L Troponin I LESS THAN 0.02 NG/ML LESS THAN 0.02 NG/ML Lipase 88 U/L [facility] Supervised Visit with SG: Yes Interpretation(s) ECG: Sinus bradycardia first-degree AV block, Q waves in lead III, right bundle branch block, (similar to EKG on August 30, 2017) Narrative Course Patient's CXR showed no acute process and cardiac enzymes were negative, but d- dimer was elevated. As patient has a h/o cancer and is allergic to contrast, a VQ scan was ordered as well as a non contrast chest CT. At the time of my leaving the ER patient's chest CT, VQ scan, and second set of cardiac enzymes were pending. Please see the mid level note for final dispo. Diagnosis Primary Impression: Right-sided chest wall pain Med/Other Pt SpecificInfo: Prescription(s) given Scripts Hydrocodone-Acetaminophen (Hydrocodone-Acetaminophen) 5-325 mg Tab 1 TAB PO Q6H Y for PAIN, #12 TAB 0 Refills Prov: Chyna Trujillo MD 10/18/17 Disposition: 01 DISCHARGE HOME Condition: Stable Aleah Stokes MD Oct 18, 2017 15:44
[2017-10-18 15:47] LABS: INTERNATIONAL NORMALIZED RATIO 1.1 RATIO; PROTHROMBIN TIME - PATIENT 10.8 SEC (9.8-11.6)
[2017-10-18 15:58] LABS: ALBUMIN 3.5 GM/DL (3.4-5.0); ALT (GPT) 17 U/L (12-78); AST (GOT) 16 U/L (15-37); BICARBONATE 27.6 MEQ/L (21.0-32.0); BLOOD UREA NITROGEN 26 MG/DL (7-18); CALCIUM 8.7 MG/DL (8.5-10.1); CHLORIDE 103 MEQ/L (98-107); CREATININE 1.33 MG/DL (0.60-1.30); GLOMERULAR FILTRATION RATE 51 ML/MIN (>89); GLUCOSE,RANDOM 90 MG/DL (74-106); SODIUM (NA) 138 MEQ/L (136-145)
[2017-10-18 16:02] LABS: ALKALINE PHOSPHATASE 442 U/L (45-117); TOTAL BILIRUBIN ADULT 0.5 MG/DL (0.2-1.0); TOTAL PROTEIN 7.2 GM/DL (6.4-8.2); TROPONIN I LESS THAN 0.02 NG/ML (0.02-0.05)
--- NOTE | 2017-10-18 16:27 | RADRPT ---
EXAM DATE: 10/18/2017 4:01 PM EDT AGE/SEX: 87 years / Male INDICATIONS: Chest pain. CLINICAL DATA: This is the patient's initial encounter. Patient reports that signs and symptoms have been present for 1 week and indicates a pain score of 3/10. MEDICAL/SURGICAL HISTORY: Chronic obstructive pulmonary disease. Cholecystectomy. [place] [facility] [place] . FINDINGS: Deterioration in the appearance of the chest with increasing consolidative changes in the right upper lobe and right base. Moderate elevation right hemidiaphragm; stable Coarse interstitial changes left base Mild compensated cardiomegaly Extensive degenerative changes thoracic spine. CONCLUSION: Deterioration with increasing consolidative changes on the right with elevation right hemidiaphragm.. Electronically signed by: Jordy Rice MD 10/18/2017 4:26 PM EDT
[2017-10-18 16:57] VITALS: RESP 18
--- NOTE | 2017-10-18 18:40 | RADRPT ---
EXAM DATE: 10/18/2017 5:14 PM EDT AGE/SEX: 87 years / Male INDICATIONS: Abnormal chest x-ray. Evaluate for mass. CLINICAL DATA: This is the patient's initial encounter. Patient reports that signs and symptoms have been present for 1 day and indicates a pain score of 0/10. MEDICAL/SURGICAL HISTORY: Carcinoma, bladder. Lobectomy. RADIATION DOSE: 8.02 CTDI (mGy) COMPARISON: No prior exams available for comparison. TECHNIQUE: Multiple contiguous axial images were obtained through the chest without contrast. Image s were obtained in suspended respiration using multiple row detector helical technique. Using automa kamaljit exposure control and adjustment of the mA and/or kV according to patient size, radiation dose was kept as low as reasonably achievable to obtain optimal diagnostic quality images. DICOM format imag e data is available electronically for review and comparison. FINDINGS: Correlation is made with prior chest radiograph dating back to May 2017. There is persistent dens e consolidation in the upper right lung with right apical pleural thickening. There is also some righ t basilar fibrotic changes and elevation of the right diaphragm. Staple line is seen in the upper rig ht lung. Left lung demonstrates some minimal left basilar airspace disease. No pleural or pericardial effusion. No adenopathy. There is moderate coronary artery calcification. CONCLUSION: 1. Chronic consolidative changes in the upper right lung associated with surgical clips and lung st aples and may be related to prior therapy. Findings are similar to a chest radiograph from May 22. There is chronic elevation of the left hemidiaphragm which is stable. Minimal left basilar airspa ce disease. Electronically signed by: Leonides Bain MD 10/18/2017 6:39 PM EDT
--- NOTE | 2017-10-18 21:03 | PD ---
HPI Chief Complaint: Chest Pain Time Seen by Provider: 15:02 Travel History International Travel<30 days: No Contact w/Intl Traveler<30days: No Traveled to known affect area: No History of Present Illness HPI 87-year-old male that presents to the ED for evaluation of chest pain to his right side that radiates to his right shoulder. Per patient he has had this for about 2 weeks. Per it appears to be ongoing for some time. Patient had recent cholecystectomy about a month and a half. Per patient the pain on the abdomen appears to have improved. Per patient he does not know what the pain is coming from either from the surgery or from a mass that he has in his chest. He has a history of lung cancer and had part of his lung removed. Apparently he has some mass in his lung that the hot walker Dr. Fields is keeping an eye on and has not grown per family or patient. Patient states that his pain is 8 out of 10. He is to take hydrocodone after the surgery which did seem to help with his pain but does not seem to be working as much anymore. He does have allergies to multiple medications including iodine. Denies any recent travel. Denies any shortness of breath. Per patient the pain stays mostly on the right side and does not move from this area. He denies any leg or arm pain. No other medical issues. No nausea or vomiting. No cough or runny nose. No fevers chills or sweats. PFSH Past Medical History Arthritis: Yes Blood Disorders: No Cancer: Yes ( BLADDER/LUNG) Cardiovascular Problems: No High Cholesterol: Yes Diabetes: No Endocrine: No Gastrointestinal Disorders: Yes GERD: Yes Glaucoma: No Genitourinary: Yes (BLADDER CANCER) Hepatitis: No Hiatal Hernia: No Hypertension: No Immune Disorder: No Kidney Stones: Yes Musculoskeletal: Yes Neurologic: No Psychiatric: No Respiratory: Yes Thyroid Disease: No Past Surgical History Abdominal Surgery: Yes (APPENDECTOMY) AICD: No Appendectomy: Yes Cardiac Surgery: No Ear Surgery: No Endocrine Surgery: No Eye Surgery: No Genitourinary Surgery: Yes (BLADDER TUMOR) Gynecologic Surgery: No Joint Replacement: No Oral Surgery: No Pacemaker: No Thoracic Surgery: Yes ( LOBECTOMY IN 01/09 RUL AND RML) Other Surgery: Yes Social History Alcohol Use: Yes (SOCIALLY) Tobacco Use: No (PT SMOKED 2PPD FOR 60-70YRS, QUIT IN 1997) Substance Use: No Allergies-Medications (Allergen,Severity, Reaction): Coded Allergies: diatrizoate meglumine (Verified Allergy, Severe, PASSED OUT, 05/07/17) gadobenic acid (Verified Allergy, Severe, PASSED OUT, 05/07/17) gadodiamide (Verified Allergy, Severe, PASSED OUT, 05/07/17) gadoteridol (Verified Allergy, Severe, PASSED OUT, 05/07/17) iodixanol (Verified Allergy, Severe, PASSED OUT, 05/07/17) iohexol (Verified Allergy, Severe, PASSED OUT, 05/07/17) iodine (Verified Allergy, Mild, 05/07/17) potassium iodide (Verified Allergy, Mild, 05/07/17) povidone-iodine (Verified Allergy, Mild, 05/07/17) sodium iodide (Verified Allergy, Mild, 05/07/17) sodium iodide (Verified Allergy, Mild, 05/07/17) atorvastatin (Unverified Adverse Reaction, Intermediate, SEVERE WEAKNESS, PAIN, 09/06/17) pt states he is not allergic Reported Meds & Prescriptions Reported Meds & Active Scripts Active Reported Percocet (Oxycodone-Acetaminophen) 5-325 mg Tab 0.5 Tab PO Q4H PRN Vitamin C (Ascorbic Acid) 500 Mg Capsule 500 Cap PO DAILY B Complex (B-Complex Vitamins) 1 Cap 1 Cap PO DAILY Fish Oil + D3 (Fish Oil-Cholecalciferol) 1,200-1,000 Mg-Unit Cap 1 Cap PO DAILY Lutein 20 Mg Cap 20 Mg PO DAILY Spectravite Senior (Multivit with Iron-Minerals) 1 Each Tablet 2 Tab PO DAILY Maria Del Carmen Allergy (Fexofenadine HCl) 180 Mg Tab 180 Mg PO DAILY Aspirin DR (Aspirin) 81 Mg Tabdr 81 Mg PO DAILY Xopenex Hfa 15 GM Inh (Levalbuterol 15 GM Inh) 45 Mcg/Act Aer 90 Mcg INH DAILY Shake well before using. (1 puff = 45 mcg) Metoprolol Tartrate 25 Mg Tab 12.5 Mg PO HS Crestor (Rosuvastatin Calcium) 10 Mg Tab 10 Mg PO DAILY Symbicort Inh (Budesonide/Formoterol Fumarate) 160-4.5 Mcg/Act Aero 1 Puff INH Q12HR Review of Systems Except as stated in HPI: all other systems reviewed are Neg Physical Exam Narrative GENERAL: SKIN: Warm and dry. HEAD: Atraumatic. Normocephalic. EYES: Pupils equal and round. No scleral icterus. No injection or drainage. ENT: No nasal bleeding or discharge. Mucous membranes pink and moist. Tongue is midline. No uvula deviation. NECK: Trachea midline. No JVD. CARDIOVASCULAR: Regular rate and rhythm. No murmurs, S3, S4. RESPIRATORY: No accessory muscle use. Clear to auscultation. Breath sounds equal bilaterally. GASTROINTESTINAL: Abdomen soft, non-tender, nondistended. Hepatic and splenic margins not palpable. MUSCULOSKELETAL: Extremities without clubbing, cyanosis, or edema. No obvious deformities. Full range of motion of the upper and lower extremities bilaterally. 2+ pulses bilaterally. NEUROLOGICAL: Awake and alert. No obvious cranial nerve deficits. Motor grossly within normal limits. Five out of 5 muscle strength in the arms and legs. Normal speech. PSYCHIATRIC: Appropriate mood and affect; insight and judgment normal. Data Data Last Documented VS Vital Signs Date Time Temp Pulse Resp B/P (MAP) Pulse Ox O2 Delivery O2 Flow Rate FiO2 10/18/17 16:57 18 10/18/17 14:45 97.6 54 109/54 (72) 96 Orders Orders Electrocardiogram (10/18/17 14:57) Complete Blood Count With Diff (10/18/17 14:57) Ckmb (Isoenzyme) Profile (10/18/17 14:57) Troponin I (10/18/17 14:57) Iv Access Insert/Monitor (10/18/17 14:57) Ecg Monitoring (10/18/17 14:57) Oxygen Administration (10/18/17 14:57) Oximetry (10/18/17 14:57) Comprehensive Metabolic Panel (10/18/17 14:57) Act Partial Throm Time (Ptt) (10/18/17 14:57) Prothrombin Time / Inr (Pt) (10/18/17 14:57) Chest, Pa & Lat (10/18/17 ) Morphine Inj (Morphine Inj) (10/18/17 15:15) Metoclopramide Inj (Reglan Inj) (10/18/17 15:15) Aspirin (Aspirin) (10/18/17 15:30) Lipase (10/18/17 14:57) Magnesium (Mg) (10/18/17 14:57) D-Dimer (10/18/17 15:32) Ct Thorax/ Chest Wo Iv Contras (10/18/17 ) Ventilation & Perfusion Scan (10/18/17 ) Troponin I (10/18/17 19:49) Ed Discharge Order (10/18/17 21:14) Labs Laboratory Tests Test 10/18/17 15:15 10/18/17 20:03 White Blood Count 7.9 TH/MM3 Red Blood Count 4.31 MIL/MM3 Hemoglobin 13.0 GM/DL Hematocrit 38.7 % Mean Corpuscular Volume 89.8 FL Mean Corpuscular Hemoglobin 30.2 PG Mean Corpuscular Hemoglobin Concent 33.6 % Red Cell Distribution Width 14.1 % Platelet Count 213 TH/MM3 Mean Platelet Volume 7.4 FL Neutrophils (%) (Auto) 68.3 % Lymphocytes (%) (Auto) 16.6 % Monocytes (%) (Auto) 8.8 % Eosinophils (%) (Auto) 5.7 % Basophils (%) (Auto) 0.6 % Neutrophils # (Auto) 5.4 TH/MM3 Lymphocytes # (Auto) 1.3 TH/MM3 Monocytes # (Auto) 0.7 TH/MM3 Eosinophils # (Auto) 0.4 TH/MM3 Basophils # (Auto) 0.1 TH/MM3 CBC Comment DIFF FINAL Differential Comment Prothrombin Time 10.8 SEC Prothromb Time International Ratio 1.1 RATIO Activated Partial Thromboplast Time 24.9 SEC D-Dimer Quantitative (PE/DVT) 0.65 MG/L FEU Blood Urea Nitrogen 26 MG/DL Creatinine 1.33 MG/DL Random Glucose 90 MG/DL Total Protein 7.2 GM/DL Albumin 3.5 GM/DL Calcium Level 8.7 MG/DL Magnesium Level 2.0 MG/DL Alkaline Phosphatase 442 U/L Aspartate Amino Transf (AST/SGOT) 16 U/L Alanine Aminotransferase (ALT/SGPT) 17 U/L Total Bilirubin 0.5 MG/DL Sodium Level 138 MEQ/L Potassium Level 4.5 MEQ/L Chloride Level 103 MEQ/L Carbon Dioxide Level 27.6 MEQ/L Anion Gap 7 MEQ/L Estimat Glomerular Filtration Rate 51 ML/MIN Total Creatine Kinase 50 U/L Troponin I LESS THAN 0.02 NG/ML LESS THAN 0.02 NG/ML Lipase 88 U/L MDM Medical Decision Making Medical Screen Exam Complete: Yes Emergency Medical Condition: Yes Medical Record Reviewed: Yes Interpretation(s) CBC & BMP Diagram 10/18/17 15:15 Total Protein 7.2, Albumin 3.5, Calcium Level 8.7, Magnesium Level 2.0, Alkaline Phosphatase 442 H, Aspartate Amino Transf (AST/SGOT) 16, Alanine Aminotransferase (ALT/SGPT) 17, Total Bilirubin 0.5 d-dimmer slightly positive Last Impressions Lung Scan-VQ Nuclear Medicine 10/18/17 0000 Signed Impressions: CONCLUSION: 1. Low probability for pulmonary embolus. Chest X-Ray 10/18/17 0000 Signed Impressions: CONCLUSION: Deterioration with increasing consolidative changes on the right with elevation right hemidiaphragm.. Chest CT 10/18/17 0000 Signed Impressions: CONCLUSION: 1. Chronic consolidative changes in the upper right lung associated with surg ical clips and lung kendall and may be related to prior therapy. Findings are s imilar to a chest radiograph from May 2017. There is chronic elevation of t he left hemidiaphragm which is stable. Minimal left basilar airspace disease. troponin x2 negative CKMB negative EKG shows sinus rhythm with no sign of acute ischemia or arrhythmia read by me and attending. Differential Diagnosis Chest pain versus a typical chest pain versus muscle strain versus mass versus pneumonia versus PE Narrative Course 87-year-old male that presents to the ED for evaluation of right-sided chest pain. Patient was properly examined and was found to have signs and symptoms which appeared to be more consistent with a typical chest pain. This appears to be ongoing for a couple of weeks. I did review the patient's medical records and apparently he has had similar symptoms in the past. He was found to have biliary colic and it was thought to be the cause of some of this pain so he they did a cholecystectomy about a month and a half ago with what patient describes improvement of the pain in the abdomen but the pain continues on the right side of the chest. His concern there may be more related to a mass versus something from the surgery. He comes here to get evaluated for this. Labs and imaging order. Patient was given IV pain medications. Labs and imaging showed positive d-dimer. VQ scan was ordered. My attending Dr. Stokes evaluated the patient and agrees with plan. VQ scan showed low probability of PE. At this time patient was reassured. Second troponin was also negative. From history and physical this is likely chronic and possibly secondary to the mass. My attending Dr. Stokes agrees that patient can be discharged with pain medication and follow-up with PCP. Patient was given copies of blood work and imaging to follow with his hot walker Dr. Fields. See ED worsening symptoms. Follow-up with PCP. Diagnosis Primary Impression: Right-sided chest wall pain Additional Impression: Mass of right lung Patient Instructions: General Instructions, Narcotic given in the ED Additional Instructions: Take medications as prescribed. Follow-up with PCP or Dr Fields for further evaluation. See ED for any worsening symptoms. Do not drink or drive while taking pain medication. Apply ice or heat as needed for pain Med/Other Pt SpecificInfo: Prescription(s) given Scripts Hydrocodone-Acetaminophen (Hydrocodone-Acetaminophen) 5-325 mg Tab 1 TAB PO Q6H Y for PAIN, #12 TAB 0 Refills Prov: Chyna Trujillo MD 10/18/17 Disposition: 01 DISCHARGE HOME Condition: Stable Jeet Thomas Oct 18, 2017 21:03
--- NOTE | 2017-10-18 21:09 | RADRPT ---
EXAM DATE: 10/18/2017 9:01 PM EDT AGE/SEX: 87 years / Male INDICATIONS: Chest pain and dyspnea. CLINICAL DATA: This is the patient's initial encounter. Patient reports that signs and symptoms have been present for 3 weeks and indicates a pain score of 3/10. MEDICAL/SURGICAL HISTORY: Chronic obstructive pulmonary disease. Carcinoma, lung. Ex-smoker. Cholecystectomy. Lobectomy. Appendectomy. COMPARISON: [facility] [place] & [place], 10/18/2017. . DOSE: 0.9 mCi Tc99m DTPA aerosol 8.3 mCi Tc99m MAA IV TECHNIQUE: Following five minutes of tidal breathing of DTPA aerosol, planar images of the lungs wer e performed in eight projections. The patient was then injected with MAA, and eight-view perfusion s can was performed. FINDINGS: On the chest radiograph there has been previous lung resection with chronic apical consolidation and elevated right hemidiaphragm. There is expected matching perfusion and ventilation abnormality in the upper right hemithorax with an elevated right hemidiaphragm. No perfusion defects in the left lung. CONCLUSION: 1. Low probability for pulmonary embolus. Electronically signed by: Leonides Bain MD 10/18/2017 9:08 PM EDT
[2017-10-18] MEDS ORDERED: HYDR-3516 PO (21:16)
--- NOTE | 2017-10-19 17:03 | EKG ---
Date Performed: 10/18/2017 Time Performed: 15:16:42 PTAGE: 87 years EKG: SINUS BRADYCARDIA WITH FIRST DEGREE AV BLOCK RIGHT BUNDLE BRANCH BLOCK ABNORMAL ECG PREVIOUS TRACING : 08/30/2017 13.44 Since the previous tracing, no significant change noted DOCTOR: Lexa Singletary Interpretating Date/Time 10/19/2017 17:00:46
== END 2017-10-18 21:41 | disposition home or self-care (01) ==
LOC: NEPE 14:27
DX: R07.89 Other chest pain (principal); R91.8 Other nonspecific abnormal finding of lung field; J44.9 Chronic obstructive pulmonary disease, unspecified; C34.90 Malignant neoplasm of unspecified part of unspecified bronchus or lung; R00.1 Bradycardia, unspecified; I44.0 Atrioventricular block, first degree; I45.10 Unspecified right bundle-branch block; E78.00 Pure hypercholesterolemia, unspecified; Z85.118 Personal history of other malignant neoplasm of bronchus and lung; Z85.51 Personal history of malignant neoplasm of bladder; Z87.442 Personal history of urinary calculi; Z87.891 Personal history of nicotine dependence; Z88.8 Allergy status to other drugs, medicaments and biological substances; Z79.899 Other long term (current) drug therapy
CPT/HCPCS: 71046; 71250; 78582; 80053; 82550; 83690; 83735; 84484; 85025; 85379; 85610; 85730; 93005; 96374; 96375; 99285; A9540; A9567; J2270; J2765